=== PATIENT | male | born 1980 | race Caucasian/White ===

== ENCOUNTER 2018-11-21 15:26 | Emergency (ER) | payer OTHER ==
[~2018-11-21] VITALS: Ht 165.1 cm; Wt 65.0 kg
[2018-11-21 15:55] LABS: HEMATOCRIT 43.1 % (39.0-50.0); HEMOGLOBIN 14.6 g/dl (14.0-18.0); IMMATURE GRANULOCYTES 0.2 % (0.0-5.0); MEAN CELL VOLUME 93.5 fL CALC (80.0-100.0); MEAN CORPUSCULAR HGB 31.7 pG CALC (26.0-32.0); MEAN CORPUSCULAR HGB CONC 33.9 g/L CALC (32.0-36.0); NEUT# 4.72 thou/uL (1.82-7.42); RED BLOOD COUNT 4.61 mill/uL (4.70-6.10); RED CELL DISTRI WIDTH 12.1 % (11.5-15.5)
[2018-11-21 16:22] LABS: ANION GAP 12 (6-22 (CALC)); BUN 12 mg/dL (9-20); BUN/CREATININE RATIO 12 (12-20 (CALC)); CARBON DIOXIDE 24 mmol/l (22-30); CHLORIDE 107 mmol/l (95-108); GFR > 60 ML/MIN (>=60 (CALC)); GFR FOR AFR.AMER. > 60 ML/MIN (>=60 (CALC)); SODIUM 140 mmol/l (137-146)
[2018-11-21 16:31] VITALS: BP 148/74
[2018-11-21] MEDS ORDERED: CEPHALEXIN500 M1 PO (16:31)
== END 2018-11-21 16:36 | disposition home or self-care (01) ==
LOC: ED 15:26
PROVIDERS: Family Medicine
DX: R04.0 Epistaxis (principal)

== ENCOUNTER 2018-11-21 18:11 | Emergency (ER) | payer OTHER ==
[~2018-11-21] VITALS: Ht 165.1 cm; Wt 64.0 kg
[~2018-11-21 18:11] MED LIST: CEPHALEXIN500 M1 PO
[2018-11-21 20:08] VITALS: BP 119/72
== END 2018-11-21 20:08 | disposition short-term general hospital (02) ==
LOC: ED 18:11
DX: R04.0 Epistaxis (principal); F17.200 Nicotine dependence, unspecified, uncomplicated